=== PATIENT | female | born 1960 | race Caucasian/White ===

== ENCOUNTER → 2020-12-04 | Outpatient (CLI) | payer OTHER ==
[2020-12-04 13:34] LABS: HEMOGLOBIN 13.8 gm/dl (12.3-15.3); RED BLOOD COUNT 4.88 M/UL (4.00-5.10); WHITE BLOOD COUNT 10.8 K/UL (4.5-11.0)
[2020-12-04 13:57] LABS: BUN/CREATININE RATIO 21 (0-10)
== END ==
LOC: OPSV 11:55
PROVIDERS: Internal Medicine Infectious Disease
DX: A31.0 Pulmonary mycobacterial infection (principal); B40.2 Pulmonary blastomycosis, unspecified
CPT/HCPCS: 36415; 80053; 85025; 86140

== ENCOUNTER → 2021-01-15 | Outpatient (CLI) | payer OTHER | LOC: EXRD 14:26 | DX: J47.9 Bronchiectasis, uncomplicated (principal); Z86.19 Personal history of other infectious and parasitic diseases; R91.8 Other nonspecific abnormal finding of lung field | CPT/HCPCS: 71046 ==

== ENCOUNTER → 2021-11-28 | Outpatient (CLI) | payer OTHER | LOC: EXRD 10:30 | DX: R04.2 Hemoptysis (principal); J44.9 Chronic obstructive pulmonary disease, unspecified; R91.8 Other nonspecific abnormal finding of lung field | CPT/HCPCS: 71046 ==

== ENCOUNTER → 2021-12-16 | Outpatient (CLI) | payer OTHER | LOC: KOH-I 12-09 10:00 | DX: J47.9 Bronchiectasis, uncomplicated (principal) | CPT/HCPCS: 71250 ==